=== PATIENT | female | born 1985 | race Caucasian/White ===

== ENCOUNTER 2016-09-13 13:10 | Emergency (ER) | payer SELFPAY ==
[~2016-09-13] VITALS: Ht 167.6 cm; Wt 63.6 kg
[2016-09-13 13:10] VITALS: BP 142/78; PULSE 87; RESP 22; TEMP 98.4; O2SAT 100; Ht 167.6 cm; Wt 63.6 kg
[~2016-09-13 13:10] MED LIST: METO-68 PO; PNV1CAPS PO
--- OUTSIDE RECORDS SUMMARY | 2016-09-13 13:14 | XMS REPORT | Continuity of Care Document ---
Author Author [facility] Organization [facility] Address Unknown Phone Unavailable Allergies Active Description Code Type Severity Reaction Onset Reported/Identified Relationship to Patient Clinical Status Yes lidocaine Drug Allergy Moderate Adverse Reaction 08/16/2012 Yes No Known Food Allergies Food Allergy 08/16/2012 Yes No Known Food Allergies Food Allergy N/A N/A 08/16/2012 Medications Problems Date Dx Coded Attending Type Code Diagnosis Diagnosed By 08/16/2012 Jules PEREZ, Claudia Earl Final 644.03 THREAT PREMAT LABOR-AP 11/20/2012 Girma Ortiz MD 427.89 CARDIAC DYSRHYTHMIAS NEC 11/20/2012 Girma Ortiz MD 641.21 YUKI SEPAR PLACEN-DELIV 11/20/2012 Girma Ortiz MD 648.61 CV DIS NEC PREG-DELIVER 11/20/2012 Girma Ortiz MD 648.63 CV DIS NEC-ANTEPARTUM 11/20/2012 Girma Ortiz MD 659.71 ABN DEL FET HT RT/RHYTHM,W OR W/O MENTION OF ANTEP 11/20/2012 Girma Ortiz MD 663.31 CORD ENTANGLE NEC-DELIV 11/20/2012 Girma Ortiz MD 664.81 OB PERINEAL TRAU NEC-DEL 11/20/2012 Girma Ortiz MD V27.0 DELIVER-SINGLE LIVEBORN Procedures Code Description Performed By Performed On 73.01 INDUCT LABOR-RUPT MEMB Girma Ortiz MD 11/20/2012 73.59 MANUAL ASSIST DELIV NEC 11/20/2012 Results Test Result Range HEPATIC FUNCTION PANEL - 03/30/12 20:20 BILI UNCONJUGATED 0.2 mg/dL 0.0-0.7 AST/SGOT 32 Units/L 10-37 ALT/SGPT 30 Units/L < 66 TOTAL PROTEIN 6.9 gm/dL 6.4-8.2 ALBUMIN 3.9 gm/dL 3.4-5.0 BILI TOTAL 0.3 mg/dL 0.0-1.0 ALKALINE PHOSPHATASE TOTAL 78 Units/L 50- 136 BILI CONJUGATED 0.1 mg/dL 0.0-0.3 LIPASE - 03/30/12 20:20 LIPASE 50 Units/L 73-393 HCG QUANT INTACT - 03/30/12 20:20 HCG QUANT INTACT 5150 mIU/mL CBC W/DIFF - 03/30/12 20:20 GRANULOCYTE # 14.7 k/cumm 2.0-9.0 LYMPHOCYTE # 2.9 k/cumm 1.0-4.0 LYMPHOCYTE % 16 % 20-30 MEAN CELL HGB 32.3 pg 27.0-33.0 MEAN CELL HGB CONCENTRATION 34.8 g/dl 32.0-36.0 MEAN CELL VOLUME 93.1 fl 80.0-100.0 MONOCYTE # 0.7 k/cumm 0.1-1.0 MONOCYTE % 4 % 4-6 RED BLOOD CELL 3.95 m/cumm 4.00-6.00 RED CELL DISTRIBUTION WIDTH 13.0 % 11.0- 15.6 WHITE BLOOD CELL 18.4 k/cumm 5.0-10.0 HEMOGLOBIN 12.8 gm/dL 12.0-16.0 HEMATOCRIT 36.8 % 37.0-47.0 PLATELET COUNT 312 k/cumm 150-450 MANUAL DIFF(R) - 03/30/12 20:20 BAND % 3 % 0-10 DIFFERENTIAL MANUAL RBC MORPH NOTED SEGMENTED NEUTROPHIL % 77 % 50-70 CHEM/HEM PROFILE-BEDSIDE - 03/30/12 20:28 POTASSIUM 3.4 mmol/L 3.5-5.3 METHOD Bedside ANION GAP 19 mmol/L 10-20 METHOD Bedside GLUCOSE 115 mg/dL 70-99 BLOOD UREA NITROGEN 12 mg/dL 7-20 CREATININE 0.8 mg/dL 0.6-1.0 HEMOGLOBIN 12.2 gm/dL 12.0-16.0 HEMATOCRIT 36.0 % 37.0-47.0 SODIUM 140 mmol/L 135-148 CHLORIDE 106 mmol/L 98-110 CARBON DIOXIDE 21 mmol/L 21-32 CALCIUM IONIZED 4.8 mg/dL 4.5-5.3 UR TEST - 03/30/12 20:40 UR TEST POSITIVE NEGATIVE UA MICROSCOPIC - 03/30/12 20:40 UA BACTERIA 2+ NEGATIVE UA EPITHELIAL CELLS 2+ epi/hpf 0 - 1+ UA MUCUS 2+ NEG TO 1+ UA RBC 0-3 rbc/hpf 0 - 3 UA VOLUME FOR EXAM 12.0 mL (12mL STD) UA WBC 2-5 wbc/hpf 0 - 5 STREP GROUP B VAG/RECTAL CULT - 10/26/12 11:38 Uncategorized CBC - 11/20/12 17:55 MEAN CELL HGB 28.7 pg 27.0-33.0 MEAN CELL HGB CONCENTRATION 32.8 g/dL 32.0-37.0 MEAN CELL VOLUME 87.3 fl 80.0-100.0 RED BLOOD CELL 3.94 m/cumm 4.00-6.00 RED CELL DISTRIBUTION WIDTH 16.0 % 11.0- 15.6 WHITE BLOOD CELL 10.1 k/cumm 5.0-10.0 HEMOGLOBIN 11.3 gm/dL 12.0-16.0 HEMATOCRIT 34.4 % 37.0-47.0 PLATELET COUNT 207 k/cumm 150-400 UR DRUGS OF ABUSE SCREEN - 11/20/12 21:50 UR AMPHETAMINES SCREEN NEG (<1000 ng/mL) NEGATIVE UR BARBITURATE SCREEN NEG (< 200 ng/mL) NEGATIVE DRUGS OF ABUSE SCREEN COMMENT UR OPIATES SCREEN NEG (< 300 ng/mL) NEGATIVE UR PHENCYCLIDINE (PCP) SCREEN NEG (< 25 ng/mL) NEGATIVE UR CANNABINOIDS (THC) SCREEN NEG (< 50 ng/mL) NEGATIVE UR COCAINE METABOLITE SCREEN NEG (< 300 ng/mL) NEGATIVE UR METHADONE SCREEN NEG (< 300 ng/mL) NEGATIVE UR BENZODIAZEPINE SCREEN NEG (< 200 ng/mL) NEGATIVE CORD ARTERIAL BLOOD GAS - 11/21/12 10:23 ARTERIAL CORD BLD BASE EXCESS -3.1 meq/L -7.6-1.3 COMMENT ARTERIAL ARTERIAL CORD BICARBONATE 26.7 meq/L 16.0 -27.1 ARTERIAL CORD BLOOD PCO2 68 mm Hg 32-69 ARTERIAL CORD BLOOD PH 7.22 7.14-7.40 ARTERIAL CORD BLOOD PO2 18.5 mm Hg 8-33 ARTERIAL CORD BLOOD O2 SAT 25 % 5-59 CORD VENOUS BLOOD GAS - 11/21/12 10:23 VENOUS CORD BLOOD BASE EXCESS -3.2 meq/L -5.8-0.7 COMMENT VENOUS VENOUS CORD BLOOD HCO3 21.9 meq/L 17.4- 25.4 VENOUS CORD BLOOD PCO2 40 mm Hg 28-57 VENOUS CORD BLOOD PH 7.36 7.23-7.46 VENOUS CORD BLOOD PO2 32 mm Hg 15-42 VENOUS CORD BLOOD O2 SAT 72 % 14-75 HEMOGLOBIN - 11/21/12 14:59 MEAN CELL VOLUME 87.3 fl 80.0-100.0 HEMOGLOBIN 10.5 gm/dL 12.0-16.0 CBC W/DIFF - 12/29/12 14:41 COMMENT EOSINOPHIL # 0.1 k/cumm 0.1-0.5 EOSINOPHIL % 1 % 2-4 GRANULOCYTE # 3.4 k/cumm 2.0-9.0 GRANULOCYTE % 54 % 50-75 LYMPHOCYTE # 2.2 k/cumm 1.0-4.0 LYMPHOCYTE % 36 % 20-30 MEAN CELL HGB 28.2 pg 27.0-33.0 MEAN CELL HGB CONCENTRATION 32.7 g/dL 32.0-37.0 MEAN CELL VOLUME 86.3 fl 80.0-100.0 MONOCYTE # 0.5 k/cumm 0.1-1.0 MONOCYTE % 8 % 4-6 RED BLOOD CELL 4.82 m/cumm 4.00-6.00 RED CELL DISTRIBUTION WIDTH 14.8 % 11.0- 15.6 WHITE BLOOD CELL 6.2 k/cumm 5.0-10.0 HEMOGLOBIN 13.6 gm/dL 12.0-16.0 HEMATOCRIT 41.6 % 37.0-47.0 PLATELET COUNT 228 k/cumm 150-400 URINALYSIS WITH MICROSCOPIC - 12/29/12 14:41 UA LEUKOCYTE ESTERASE DIPSTICK NEGATIVE NEGATIVE UA NITRITE DIPSTICK NEGATIVE NEGATIVE UA PROTEIN DIPSTICK NEGATIVE NEGATIVE UA GLUCOSE DIPSTICK NEGATIVE NEGATIVE UA KETONE DIPSTICK NEGATIVE NEGATIVE UA UROBILINOGEN DIPSTICK NORMAL NORMAL UA BILIRUBIN DIPSTICK NEGATIVE NEGATIVE UA BLOOD DIPSTICK NEGATIVE NEGATIVE UA COMMENT UA EPITHELIAL CELLS 2+ epi/hpf 0 - 1+ UA RBC 0 rbc/hpf 0 - 3 UA VOLUME FOR EXAM 12.0 mL (12mL STD) UA WBC 0 wbc/hpf 0 - 5 UA SPECIFIC GRAVITY 1.010 1.015-1.025 UR PH 6.5 5.0-7.0 Encounters ACCT No. Visit Date/Time Discharge Status Pt. Type Provider Facility Loc./Unit Complaint [id number] 08/16/2012 20:08:00 2012 23:39:00 DIS Outpatient Jules PREEZ, Claudia Hassan [facility] on Case [id number]
[2016-09-13] MEDS ORDERED: PREN-135 PO (13:18)
[2016-09-13] MEDS ORDERED: IBUP-1724 PO (13:18)
--- NOTE | 2016-09-13 13:40 | NUR ---
AMA PATIENT SIGNED AMA FORM AND LEFT ED. PATIENT AMBULATORY WITHOUT DIFFICULTIES.
--- OUTSIDE RECORDS SUMMARY | 2016-09-13 13:54 | XMS REPORT | Continuity of Care Document ---
Author Author [facility] Organization [facility] Address Unknown Phone Unavailable Allergies Active Description [...] Status Pt. Type Provider Facility Loc./Unit Complaint [id number] 08/16/2012 20:08:00 2012 23:39:00 DIS Outpatient Jules PEREZ, Claudia Hassan [facility] on Case [id number]
== END 2016-09-13 13:40 | disposition left against medical advice (07) ==
LOC: ED 13:10
DX: Z53.21 Procedure and treatment not carried out due to patient leaving prior to being seen by health care provider (principal)